=== PATIENT | male | born 1940 | race Caucasian/White ===

== ENCOUNTER 2024-04-29 17:26 | Inpatient (IN) | payer OTHER ==
[~2024-04-29 17:26] MED LIST: Iopamidol 370 76% 100 ML VIAL ONE
[2024-04-29] MEDS ORDERED: Magnesium 2 GM/50 ML BAG (IN WATER) ONE (17:37)
[2024-04-29] MEDS ORDERED: Dexamethasone 10 MG/ML VIAL ONE (17:42)
[2024-04-29 18:17] LABS: #Basophils Less than 0.03 10x3/uL (0.0-0.2); #Eosinophils 0.06 10x3/uL (0.0-0.5); #Monocytes 1.22 10x3/uL (0.0-1.1); #Neutrophils 9.05 10x3/uL (1.5-8.4); %Basophils 0.2 % (0.0-2.0); %Eosinophils 0.6 % (0.0-6.0); %Lymphocytes 4.5 % (18.0-47.0); %Monocytes 11.2 % (0.0-10.0); %Neutrophils 83.2 % (40.0-75.0); Hematocrit 40.5 % (38.8-50.0); Mean Corpuscular HGB CONC 34.6 g/dL (32.0-36.0); Mean Corpuscular Hemoglobin 32.2 pg (27.0-33.0); Mean Corpuscular Volume 93.1 fL (81.2-95.1); Mean Platelet Volume 10.2 fL (7.4-10.4); Platelet Count 149 10x3/uL (150-450); RBC Distribution Width 13.8 % (11.5-14.5); Red Blood Cell (RBC) Count 4.35 10x6/uL (4.32-5.72); White Blood Cell (WBC) Count 10.87 10x3/uL (3.5-10.5)
[2024-04-29 18:20] LABS: ALT (SGPT) 51 U/L (Less than 45); AST (SGOT) 79 U/L (11-34); Albumin 3.8 g/dL (3.1-4.5); Alkaline Phosphatase 55 U/L (40-110); Anion Gap 13 mmol/L (10-20); BUN (Urea Nitrogen) 22 mg/dL (8.4-25.7); Bilirubin, Total 0.6 mg/dL (0.3-1.2); Calc. Creatinine Clearance 0 mL/min (70-130); Calcium 9.1 mg/dL (7.8-10.44); Carbon Dioxide 25 mmol/L (23-31); Chloride 100 mmol/L (98-107); Estimated GFR 69; Globulin 3.7 g/dL (2.4-3.5); Glucose 128 mg/dL (83-110); Magnesium 2.7 mg/dL (1.6-2.6); Potassium 4.2 mmol/L (3.5-5.1); Protein, Total 7.5 g/dL (5.8-8.1); Sodium 134 mmol/L (136-145)
[2024-04-29 18:21] LABS: Troponin I 0.021 ng/mL (< 0.028)
[2024-04-29] MEDS ORDERED: Arformoterol 15 MCG/2 ML NEB NEB SCH (23:45)
[2024-04-29] MEDS ORDERED: Nitroglycerin 0.4 MG TAB (25 Tab Bottle) SL PRN (23:57)
[2024-04-30 00:51] LABS: Troponin I 0.018 ng/mL (< 0.028)
[2024-04-30 02:42] VITALS: BMI 38.9
[2024-04-30] MEDS: Oseltamivir 75 MG CAP PO SCH ×2 (02:47→08:40)
[2024-04-30] MEDS: Nitroglycerin 2% Ointment 1 INCH/1 GM Packet TOP SCH ×2 (03:03→11:53)
[2024-04-30] MEDS: Aspirin 325 MG TAB PO SCH (03:06)
[2024-04-30] MEDS: cefTRIAXone\\ROCEPHIN 2 GM in Sodium Chloride 0.9% 100 ML IVPB SCH (03:24)
[2024-04-30] MEDS: Azithromycin 500 MG in Sodium Chloride 0.9% 250 ML 250 ML IVPB SCH (03:29)
[2024-04-30] MEDS: Sodium Chloride 0.9% 1,000 ML IV SCH (03:32)
[2024-04-30] MEDS: methylPREDNISolone Sod Succ/PF 125 MG/2 ML VIAL IVP SCH (03:32)
[2024-04-30 04:21] LABS: #Basophils Less than 0.03 10x3/uL (0.0-0.2); #Eosinophils Less than 0.03 10x3/uL (0.0-0.5); #Monocytes 0.39 10x3/uL (0.0-1.1); #Neutrophils 6.61 10x3/uL (1.5-8.4); %Lymphocytes 10.4 % (18.0-47.0); Hematocrit 42.8 % (38.8-50.0); Hemoglobin 14.4 g/dL (13.5-17.5); Mean Corpuscular HGB CONC 33.6 g/dL (32.0-36.0); Mean Corpuscular Hemoglobin 31.2 pg (27.0-33.0); Mean Corpuscular Volume 92.6 fL (81.2-95.1); Mean Platelet Volume 10.3 fL (7.4-10.4); Platelet Count 165 10x3/uL (150-450); RBC Distribution Width 13.8 % (11.5-14.5); Red Blood Cell (RBC) Count 4.62 10x6/uL (4.32-5.72); White Blood Cell (WBC) Count 7.87 10x3/uL (3.5-10.5)
[2024-04-30 04:36] LABS: Anion Gap 14 mmol/L (10-20); BUN (Urea Nitrogen) 22 mg/dL (8.4-25.7); Calc. Creatinine Clearance 90 mL/min (70-130); Calcium 8.6 mg/dL (7.8-10.44); Carbon Dioxide 23 mmol/L (23-31); Chloride 101 mmol/L (98-107); Estimated GFR 71; Glucose 148 mg/dL (83-110); Potassium 4.2 mmol/L (3.5-5.1); Sodium 134 mmol/L (136-145)
[2024-04-30] MEDS: dilTIAZem 25 MG/5 ML VIAL SLOW IVP SCH (05:33)
[2024-04-30] MEDS ORDERED: Nitroglycerin 2% Ointment 1 INCH/1 GM Packet TOP SCH (06:00)
[2024-04-30] MEDS: Enoxaparin 120 MG/0.8 ML SYRINGE SC SCH (06:24)
[2024-04-30 06:26] LABS: INR-International Normal Ratio 1.2; PTT 28.5 sec (22.0-33.0)
[2024-04-30] MEDS: cefTRIAXone Sodium 2,000 MG in Syringe 0 ML IVPB SCH (06:45)
[2024-04-30] MEDS: Arformoterol 15 MCG/2 ML NEB NEB SCH (07:21)
[2024-04-30] MEDS: Ipratropium/Albuterol 3 ML NEB NEB SCH (07:21)
[2024-04-30] MEDS: Budesonide 0.5 MG/2 ML NEB INH SCH (07:21)
[2024-04-30] MEDS: Aspirin 81 mg Enteric Coated Tablet PO SCH (08:40)
[2024-04-30] MEDS: Metoprolol Succinate XL 50 MG ER.TAB PO SCH (08:40)
[2024-04-30] MEDS: dilTIAZem 125 MG in Sodium Chloride 0.9% 100 ML IVPB SCH (08:40)
[2024-04-30] MEDS ORDERED: Enoxaparin 40 MG (0.4 mL) SYRINGE SC SCH (09:00)
[2024-04-30] MEDS: Acetaminophen 325 MG TAB PO PRN (13:00)
[2024-04-30] MEDS: Atorvastatin Calcium 40 MG TAB PO SCH (20:47)
[2024-04-30] MEDS: Terazosin HCl 5 MG CAP PO SCH (20:48)
[2024-04-30] MEDS: Famotidine 20 MG TAB PO SCH (20:48)
[2024-04-30 23:40] VITALS: BP 152/67; TEMP 98.1
[2024-05-01] MEDS ORDERED: cefTRIAXone\\ROCEPHIN 2 GM in Sodium Chloride 0.9% 100 ML IVPB SCH (03:30)
[2024-05-01] MEDS ORDERED: Azithromycin 500 MG in Sodium Chloride 0.9% 250 ML 250 ML IVPB SCH (03:30)
[2024-05-01] MEDS ORDERED: DULoxetine 30 MG CAP PO SCH (09:00)
== END 2024-04-30 23:05 | disposition short-term general hospital (02) | DRG 193 ==
LOC: EEVIPCON 17:26 → CSHERS 17:26 → CSHTELE 23:48
PROVIDERS: ADMIT Family Medicine; ATTEND Internal Medicine
PROC: 5A09357 Assistance with Respiratory Ventilation, Less than 24 Consecutive Hours, Continuous Positive Airway Pressure (ICD-10-PCS; principal; 2024-04-30)
DX: J10.1 Influenza due to other identified influenza virus with other respiratory manifestations (principal); J96.01 Acute respiratory failure with hypoxia; J44.1 Chronic obstructive pulmonary disease with (acute) exacerbation; I48.92 Unspecified atrial flutter; N40.0 Benign prostatic hyperplasia without lower urinary tract symptoms; K21.9 Gastro-esophageal reflux disease without esophagitis; I10 Essential (primary) hypertension; I25.10 Atherosclerotic heart disease of native coronary artery without angina pectoris; I25.2 Old myocardial infarction; Z88.8 Allergy status to other drugs, medicaments and biological substances; Z79.899 Other long term (current) drug therapy; Z90.49 Acquired absence of other specified parts of digestive tract; Z90.89 Acquired absence of other organs
CPT/HCPCS: 36415; 71275; 80048; 80053; 83735; 83880; 84145; 84484; 85025; 85610; 85730; 87040; 87070; 87077; 87205; 87428; 93005; 94640; 94660; 94762; J0456; J0696; J1100; J1650; J2919; J3475; J7030; J7050; J7620; J7626; Q9967